=== PATIENT | female | born 1980 | race Hispanic/Latino ===

== ENCOUNTER 2017-09-13 22:03 | Emergency (ER) | payer MEDICAID, OTHER ==
[2017-09-13] MEDS ORDERED: ACETAMINOPHEN-CODEINE ELIXIR 5 ML UDCUP ONE (22:15)
== END 2017-09-13 23:03 | disposition home or self-care (01) ==
LOC: EDH 22:03
DX: S02.2XXA Fracture of nasal bones, initial encounter for closed fracture (principal); Z72.0 Tobacco use; Y04.0XXA Assault by unarmed brawl or fight, initial encounter; Y93.89 Activity, other specified; Y92.89 Other specified places as the place of occurrence of the external cause; Y99.8 Other external cause status
CPT/HCPCS: 70486

== ENCOUNTER 2018-02-25 20:43 | Emergency (ER) | payer OTHER ==
[2018-02-25 21:30] LABS: BASOPHILS % (AUTO) 0.6 % (0.0-5.0); EOSINOPHILS % (AUTO) 1.2 % (0.0-8.0); HEMATOCRIT 46.7 % (36-48); LYMPHOCYTES % (AUTO) 14.2 % (21.0-51.0); MEAN CORPUSCULAR HEMOGLOBIN 30.2 pg (27.0-33.0); MEAN CORPUSCULAR HGB CONC 33.2 g/dL (32.0-36.0); MEAN CORPUSCULAR VOLUME 91.2 fL (79-99); MONOCYTES % (AUTO) 5.1 % (3.0-13.0); NEUTROPHILS % (AUTO) 78.9 % (40.0-77.0); PLATELET COUNT (AUTO) 243 K/uL (130-400); RED BLOOD CELL COUNT(AUTO) 5.12 MIL/uL (4.00-5.50); RED CELL DISTRIBUTION WIDTH 13.6 % (11.0-15.5); WHITE BLOOD COUNT (AUTO) 12.5 K/uL (4.8-10.8)
[2018-02-25 21:32] LABS: APPEARANCE,URINE CLEAR (CLEAR); BILIRUBIN,URINE NEGATIVE (NEGATIVE); COLOR,URINE YELLOW (YELLOW); GLUCOSE, URINE (UA) NEGATIVE (NEGATIVE); KETONES,URINE NEGATIVE (NEGATIVE); LEUKOCYTE ESTERASE ,URINE NEGATIVE (NEGATIVE); NITRATE,URINE POSITIVE (NEGATIVE); OCCULT BLOOD,URINE NEGATIVE (NEGATIVE); PH,URINE 5.5 (5.0-8.0); PROTEIN,URINE TRACE (NEGATIVE); UROBILINOGEN,URINE 0.2 mg/dL (0.2-1.0)
[2018-02-25 21:41] LABS: CREATININE 1.2 mg/dL (0.5-1.5); HCG,QUAL RESULT NEGATIVE (NEGATIVE); POTASSIUM 3.6 mmol/L (3.5-5.1)
[2018-02-25 21:44] LABS: AMYLASE 38 U/L (25-115); LIPASE 101 U/L (114-286)
[2018-02-25] MEDS ORDERED: IOHEXOL-350 75 ML VIAL IV ONE (21:45)
[2018-02-25 21:52] LABS: BACTERIA,URINE Few /HPF (None Seen); RBC,URINE 0-1 /HPF (0-1)
[2018-02-25 21:53] LABS: MUCUS,URINE Moderate LPF (None Seen); SQUAMOUS EPITHELIAL CELL,UR Few /HPF (0-2)
[2018-02-25 21:55] LABS: ALBUMIN 2.6 g/dL (3.5-5.0); BILIRUBIN,TOTAL 0.7 mg/dL (0.2-1.0); TOTAL PROTEIN, SERUM 5.7 g/dL (6.0-8.3)
[2018-02-25] MEDS ORDERED: LIDOCAINE HCL 2% VISCOUS 15 ML UDCUP ONE (22:11)
[2018-02-25] MEDS ORDERED: DICYCLOMINE HCL 20 MG TAB ONE (22:11)
[2018-02-25] MEDS ORDERED: MAG HYDROX/AL HYDROX/SIMETH ES 30 ML SUSP UDCUP ONE (22:11)
[2018-02-25] MEDS ORDERED: SODIUM CHLORIDE 0.9% 50 ML IV ONE (22:57)
== END 2018-02-25 22:57 | disposition home or self-care (01) ==
LOC: EDH 20:43
DX: N39.0 Urinary tract infection, site not specified (principal); R10.84 Generalized abdominal pain; Z90.49 Acquired absence of other specified parts of digestive tract; Z90.710 Acquired absence of both cervix and uterus; Z98.890 Other specified postprocedural states; Z72.0 Tobacco use
CPT/HCPCS: 36415; 74177; 80053; 81001; 81025; 82150; 83690; 85025; 99284; Q9967

== ENCOUNTER 2018-11-22 10:56 | Emergency (ER) | payer OTHER ==
[2018-11-22] MEDS ORDERED: CYCLOBENZAPRINE HCL 10 MG TABLET ONE (11:25)
[2018-11-22] MEDS ORDERED: KETOROLAC TROMETHAMINE 60 MG/2 ML VIAL ONE (11:25)
== END 2018-11-22 12:07 | disposition home or self-care (01) ==
LOC: EDH 10:56
DX: S29.012A Strain of muscle and tendon of back wall of thorax, initial encounter (principal); Z90.710 Acquired absence of both cervix and uterus; X58.XXXA Exposure to other specified factors, initial encounter; Y93.89 Activity, other specified; Y92.89 Other specified places as the place of occurrence of the external cause; Y99.8 Other external cause status
CPT/HCPCS: 71046; 96372; 99284; J1885

== ENCOUNTER 2019-12-26 16:40 | Emergency (ER) | payer MEDICAID ==
[2019-12-26] MEDS ORDERED: ONDANSETRON ODT 4 MG TAB ONE (17:32)
[2019-12-26 17:41] LABS: BASOPHILS % (AUTO) 0.8 % (0.0-5.0); EOSINOPHILS % (AUTO) 3.5 % (0.0-8.0); HEMATOCRIT 46.8 % (36-48); MEAN CORPUSCULAR HEMOGLOBIN 30.2 pg (27.0-33.0); MEAN CORPUSCULAR HGB CONC 32.9 g/dL (32.0-36.0); MEAN CORPUSCULAR VOLUME 91.8 fL (79-99); MONOCYTES % (AUTO) 6.5 % (3.0-13.0); NEUTROPHILS % (AUTO) 62.8 % (40.0-77.0); PLATELET COUNT (AUTO) 232 K/uL (130-400); RED CELL DISTRIBUTION WIDTH 12.8 % (11.0-15.5); WHITE BLOOD COUNT (AUTO) 7.7 K/uL (4.8-10.8)
[2019-12-26 17:47] LABS: APPEARANCE,URINE Clear (CLEAR); BILIRUBIN,URINE Negative (NEGATIVE); COLOR,URINE Yellow (YELLOW); GLUCOSE, URINE (UA) Negative (NEGATIVE); KETONES,URINE Trace mg/dL (NEGATIVE); LEUKOCYTE ESTERASE ,URINE Negative (NEGATIVE); NITRATE,URINE Negative (NEGATIVE); OCCULT BLOOD,URINE Moderate (NEGATIVE); PROTEIN,URINE Negative (NEGATIVE)
[2019-12-26 17:54] LABS: POTASSIUM 3.6 mmol/L (3.5-5.1)
[2019-12-26 17:56] LABS: AMPHET/METH SCREEN,URINE NEGATIVE (NEGATIVE); BARBITURATE SCREEN, URINE NEGATIVE (NEGATIVE); BENZODIAZEPINES SCREEN,URINE NEGATIVE (NEGATIVE); CANNABINOID SCREEN,URINE POSITIVE (NEGATIVE); COCAINE SCREEN,URINE POSITIVE (NEGATIVE); OPIATE SCREEN,URINE NEGATIVE (NEGATIVE); PHENCYCLIDINE SCREEN,URINE NEGATIVE (NEGATIVE)
[2019-12-26 17:59] LABS: BACTERIA,URINE Rare /HPF (None Seen); WBC,URINE 0-1 /HPF (0-1)
[2019-12-26 17:59] LABS: ALBUMIN 3.5 g/dL (3.5-5.0); BILIRUBIN,TOTAL 0.5 mg/dL (0.2-1.0); TOTAL PROTEIN, SERUM 7.7 g/dL (6.0-8.3)
[2019-12-26 18:00] LABS: MUCUS,URINE Few LPF (None Seen); SQUAMOUS EPITHELIAL CELL,UR Few /HPF (0-2)
== END 2019-12-26 18:44 | disposition home or self-care (01) ==
LOC: EDH 16:40
DX: R05 Cough (principal); M79.10 Myalgia, unspecified site; R11.2 Nausea with vomiting, unspecified; R09.89 Other specified symptoms and signs involving the circulatory and respiratory systems; Z20.828 Contact with and (suspected) exposure to other viral communicable diseases; Z90.49 Acquired absence of other specified parts of digestive tract; Z90.710 Acquired absence of both cervix and uterus; Z72.0 Tobacco use
CPT/HCPCS: 36415; 71045; 80053; 80305; 81001; 85025; 87880; 99284; U0003

== ENCOUNTER 2020-04-19 23:09 | Emergency (ER) | payer MEDICAID ==
[2020-04-19] MEDS ORDERED: ONDANSETRON 4MG INJ ONE (23:35)
[2020-04-19] MEDS ORDERED: 0.9%NACL 1000ML 1,000 ML IV ONE (23:38)
[2020-04-19 23:52] LABS: HCG,QUAL RESULT NEGATIVE (NEGATIVE)
[2020-04-19 23:53] LABS: APPEARANCE,URINE Cloudy (CLEAR); BILIRUBIN,URINE Negative (NEGATIVE); COLOR,URINE Yellow (YELLOW); GLUCOSE, URINE (UA) Negative (NEGATIVE); KETONES,URINE Trace mg/dL (NEGATIVE); LEUKOCYTE ESTERASE ,URINE Trace (NEGATIVE); NITRATE,URINE Negative (NEGATIVE); OCCULT BLOOD,URINE Large (NEGATIVE); PH,URINE 5.5 (5.0-8.0); PROTEIN,URINE POS 1+ mg/dL (NEGATIVE)
[2020-04-19 23:57] LABS: BASOPHILS % (AUTO) 0.5 % (0.0-5.0); EOSINOPHILS % (AUTO) 1.2 % (0.0-8.0); HEMATOCRIT 47.4 % (36-48); LYMPHOCYTES % (AUTO) 16.7 % (21.0-51.0); MEAN CORPUSCULAR HEMOGLOBIN 30.9 pg (27.0-33.0); MEAN CORPUSCULAR HGB CONC 33.5 g/dL (32.0-36.0); MEAN CORPUSCULAR VOLUME 92.2 fL (79-99); PLATELET COUNT (AUTO) 248 K/uL (130-400); RED BLOOD CELL COUNT(AUTO) 5.14 MIL/uL (4.00-5.50); WHITE BLOOD COUNT (AUTO) 10.3 K/uL (4.8-10.8)
[2020-04-19] MEDS ORDERED: FAMOTIDINE 20MG VIAL IV ONE (23:59)
[2020-04-20 00:04] LABS: BACTERIA,URINE Few /HPF (None Seen); CALCIUM OXALATE CRYSTALS,UR Many /LPF (None Seen); RBC,URINE 0-1 /HPF (0-1); WBC,URINE 0-1 /HPF (0-1); YEAST,URINE BUDDING Rare /HPF (None Seen)
[2020-04-20 00:06] LABS: POTASSIUM 3.5 mmol/L (3.5-5.1)
[2020-04-20 00:09] LABS: INR 0.95 (0.85-1.15); PROTHROMBIN TIME 10.4 SEC (9.6-11.6)
[2020-04-20 00:11] LABS: BILIRUBIN,TOTAL 0.7 mg/dL (0.2-1.0); PARTIAL THROMBOPLASTIN TIME 29.3 SEC (26.3-35.5); TOTAL PROTEIN, SERUM 8.6 g/dL (6.0-8.3)
[2020-04-20] MEDS ORDERED: IOHEXOL 350 MG/ML 100ML INFUS..BTL IV ONE (00:15)
[2020-04-20] MEDS ORDERED: PANTOPRAZOLE 40 MG TAB DR ONE (00:16)
[2020-04-20 02:24] LABS: HEMATOCRIT 40.9 % (36-48)
[2020-04-20] MEDS ORDERED: ACETAMINOPHEN 500 MG TABLET ONE (02:44)
== END 2020-04-20 03:49 | disposition home or self-care (01) ==
LOC: EDH 23:09
DX: R10.13 Epigastric pain (principal); F14.10 Cocaine abuse, uncomplicated; R03.0 Elevated blood-pressure reading, without diagnosis of hypertension; Z20.822 Contact with and (suspected) exposure to COVID-19; F41.9 Anxiety disorder, unspecified; F32.9 Major depressive disorder, single episode, unspecified; F20.9 Schizophrenia, unspecified; Z90.49 Acquired absence of other specified parts of digestive tract; Z90.710 Acquired absence of both cervix and uterus; Z72.0 Tobacco use
CPT/HCPCS: 36415 ×2; 71045; 74177; 80053; 81001; 81025; 82550; 83690; 84484; 85014; 85018; 85025; 85610; 85730; 86900; 86901; 87426; 93005; 96361; 96374; 99285; J2405; J3490; J7030; Q9967; U0003

== ENCOUNTER 2020-05-16 00:21 | Emergency (ER) | payer MEDICAID ==
[2020-05-16] MEDS ORDERED: ACETAMINOPHEN EXTRA STRENGTH 500 MG TABLET ONE (01:35)
[2020-05-16 01:47] LABS: RAPID GROUP A STREP NEGATIVE (NEGATIVE)
== END 2020-05-16 02:44 | disposition home or self-care (01) ==
LOC: EDH 00:21
DX: J01.80 Other acute sinusitis (principal); Z20.822 Contact with and (suspected) exposure to COVID-19; F41.9 Anxiety disorder, unspecified; F31.9 Bipolar disorder, unspecified; F20.9 Schizophrenia, unspecified; Z90.710 Acquired absence of both cervix and uterus; Z72.0 Tobacco use
CPT/HCPCS: 87426; 87804 ×2; 87880; 99283; U0003

== ENCOUNTER 2020-06-12 04:39 | Emergency (ER) | payer MEDICAID ==
[2020-06-12] MEDS ORDERED: LIDOCAINE HCL 2% JELLY 5 ML ONE (04:44)
[2020-06-12] MEDS ORDERED: LIDOCAINE 1%-EPI 1:100,000 20 ML VIAL IJ ONE (05:01)
[2020-06-12] MEDS ORDERED: HYDROCODONE/ACETAMINOPHEN 5/325 MG TAB ONE (05:05)
== END 2020-06-12 06:39 | disposition home or self-care (01) ==
LOC: EDH 04:39
DX: S01.01XA Laceration without foreign body of scalp, initial encounter (principal); F41.9 Anxiety disorder, unspecified; F32.9 Major depressive disorder, single episode, unspecified; F20.9 Schizophrenia, unspecified; Z90.49 Acquired absence of other specified parts of digestive tract; Z90.710 Acquired absence of both cervix and uterus; Z72.0 Tobacco use; W18.39XA Other fall on same level, initial encounter; Y93.01 Activity, walking, marching and hiking; Y92.89 Other specified places as the place of occurrence of the external cause; Y99.8 Other external cause status
CPT/HCPCS: 12032; 70450; 99284; J3490

== ENCOUNTER 2020-06-13 23:23 | Emergency (ER) | payer MEDICAID ==
[2020-06-14 00:03] LABS: BASOPHILS % (AUTO) 0.7 % (0.0-5.0); EOSINOPHILS % (AUTO) 6.3 % (0.0-8.0); HEMATOCRIT 43.3 % (36-48); LYMPHOCYTES % (AUTO) 35.3 % (21.0-51.0); MEAN CORPUSCULAR HEMOGLOBIN 29.9 pg (27.0-33.0); MEAN CORPUSCULAR HGB CONC 32.3 g/dL (32.0-36.0); MEAN CORPUSCULAR VOLUME 92.5 fL (79-99); MONOCYTES % (AUTO) 9.3 % (3.0-13.0); NEUTROPHILS % (AUTO) 47.9 % (40.0-77.0); PLATELET COUNT (AUTO) 247 K/uL (130-400); RED BLOOD CELL COUNT(AUTO) 4.68 MIL/uL (4.00-5.50); RED CELL DISTRIBUTION WIDTH 12.9 % (11.0-15.5)
[2020-06-14 00:06] LABS: APPEARANCE,URINE Clear (CLEAR); BILIRUBIN,URINE Negative (NEGATIVE); COLOR,URINE Yellow (YELLOW); GLUCOSE, URINE (UA) Negative (NEGATIVE); KETONES,URINE Trace mg/dL (NEGATIVE); LEUKOCYTE ESTERASE ,URINE Negative (NEGATIVE); NITRATE,URINE Negative (NEGATIVE); OCCULT BLOOD,URINE Small (NEGATIVE); PROTEIN,URINE Negative (NEGATIVE)
[2020-06-14 00:13] LABS: CREATININE 0.9 mg/dL (0.5-1.5); POTASSIUM 3.8 mmol/L (3.5-5.1)
[2020-06-14 00:18] LABS: ALBUMIN 3.5 g/dL (3.5-5.0); BILIRUBIN,TOTAL 0.4 mg/dL (0.2-1.0); CRP QUANTITATIVE 12.7 mg/L (0.00-9.0); TOTAL PROTEIN, SERUM 7.4 g/dL (6.0-8.3)
[2020-06-14 00:28] LABS: RBC,URINE 0-1 /HPF (0-1)
[2020-06-14 00:29] LABS: BACTERIA,URINE None Seen /HPF (None Seen); CALCIUM OXALATE CRYSTALS,UR Many /LPF (None Seen); MUCUS,URINE Few LPF (None Seen); SQUAMOUS EPITHELIAL CELL,UR Few /HPF (0-2); WBC,URINE None Seen /HPF (0-1)
[2020-06-14] MEDS ORDERED: SULFAMETHOX-TMP DS 800/160 TAB ONE (00:32)
[2020-06-14 00:33] LABS: HCG,QUAL RESULT NEGATIVE (NEGATIVE)
[2020-06-14] MEDS ORDERED: HYDROCODONE/ACETAMINOPHEN 5/325 MG TAB ONE (00:33)
[2020-06-14] MEDS ORDERED: ONDANSETRON HCL 4 MG/2 ML VIAL ONE (00:48)
[2020-06-14] MEDS ORDERED: KETOROLAC TROMETHAMINE 30MG/ML ONE (00:49)
[2020-06-14] MEDS ORDERED: ORPHENADRINE CITRATE 30 MG/ML ML ONE (00:49)
== END 2020-06-14 01:59 | disposition home or self-care (01) ==
LOC: EDH 23:23
DX: R51.9 Headache, unspecified (principal); M62.838 Other muscle spasm; I88.9 Nonspecific lymphadenitis, unspecified; F31.9 Bipolar disorder, unspecified; F20.9 Schizophrenia, unspecified; F43.10 Post-traumatic stress disorder, unspecified; Z72.0 Tobacco use; Z90.710 Acquired absence of both cervix and uterus
CPT/HCPCS: 36415; 80053; 81001; 81025; 85025; 86140; 96361; 96374; 96375; 99284; J1885; J2360; J2405

== ENCOUNTER 2020-06-21 14:01 | Emergency (ER) | payer MEDICAID | END 2020-06-21 14:32 | disposition home or self-care (01) | LOC: EDH 14:01 | DX: S01.01XD Laceration without foreign body of scalp, subsequent encounter (principal); F41.9 Anxiety disorder, unspecified; F32.9 Major depressive disorder, single episode, unspecified; F20.9 Schizophrenia, unspecified; Z90.49 Acquired absence of other specified parts of digestive tract; Z90.710 Acquired absence of both cervix and uterus; Z72.0 Tobacco use; X58.XXXD Exposure to other specified factors, subsequent encounter | CPT/HCPCS: 99281 ==

== ENCOUNTER 2020-07-08 12:23 | Emergency (ER) | payer MEDICAID ==
[2020-07-08] MEDS ORDERED: CYCLOBENZAPRINE HCL 10 MG TABLET ONE (12:43)
[2020-07-08] MEDS ORDERED: ACETAMINOPHEN-CODEINE 300/30MG TAB ONE (12:43)
[2020-07-08] MEDS ORDERED: METHYLPREDNISOLONE SOD SUCC 125MG/2ML VIAL ONE (12:43)
== END 2020-07-08 14:49 | disposition home or self-care (01) ==
LOC: EDH 12:23
DX: M54.5 Low back pain (principal); F20.9 Schizophrenia, unspecified; F41.9 Anxiety disorder, unspecified; F32.9 Major depressive disorder, single episode, unspecified; Z90.49 Acquired absence of other specified parts of digestive tract; Z90.710 Acquired absence of both cervix and uterus; Z72.0 Tobacco use
CPT/HCPCS: 72100; 96372; 99283; J2930

== ENCOUNTER 2022-02-28 18:30 | Emergency (ER) | payer MEDICAID ==
[~2022-02-28] VITALS: Ht 167.6 cm; Wt 90.7 kg
[2022-02-28 19:38] VITALS: BP 124/68
[2022-02-28] MEDS ORDERED: IBUP-2070 PO (20:21)
[2022-02-28] MEDS ORDERED: KETOROLAC 30MG VIAL (30MG/ML) IM ONE (20:30)
== END 2022-02-28 20:40 | disposition home or self-care (01) ==
LOC: EDH 18:30
DX: M25.561 Pain in right knee (principal); F41.9 Anxiety disorder, unspecified; F31.9 Bipolar disorder, unspecified; F20.9 Schizophrenia, unspecified; Z90.710 Acquired absence of both cervix and uterus; Z90.49 Acquired absence of other specified parts of digestive tract; Z98.890 Other specified postprocedural states
CPT/HCPCS: 99283; 96372; J1885

== ENCOUNTER 2023-04-01 14:09 | Emergency (ER) | payer MEDICAID ==
[~2023-04-01] VITALS: Ht 167.6 cm; Wt 84.8 kg
[~2023-04-01 14:09] MED LIST: IBUP-2070 PO
[2023-04-01 14:21] VITALS: BP 119/64; PULSE 84; RESP 18
[2023-04-01] MEDS ORDERED: HYDROCODONE/ACETAMINOPHEN 5/325 MG TAB PO ONE (15:00)
[2023-04-01] MEDS ORDERED: IBUP-2077 PO (15:00)
[2023-04-01] MEDS ORDERED: DEXAMETHASONE SOD PHOSPHATE 4 MG/ML 1ML VIAL IM ONE (15:00)
[2023-04-01] MEDS ORDERED: CYCL-309 PO (15:00)
[2023-04-01] MEDS ORDERED: METH4TAB3 PO (15:00)
[2023-04-01] MEDS ORDERED: CYCLOBENZAPRINE HCL 10 MG TABLET PO ONE (15:00)
== END 2023-04-01 15:46 | disposition home or self-care (01) ==
LOC: EDH 14:09
DX: M54.40 Lumbago with sciatica, unspecified side (principal); F41.9 Anxiety disorder, unspecified; F32.A Depression, unspecified; Z90.49 Acquired absence of other specified parts of digestive tract; Z90.710 Acquired absence of both cervix and uterus; Z98.890 Other specified postprocedural states
CPT/HCPCS: 99283; 96372; J1100

== ENCOUNTER 2024-02-17 00:36 | Emergency (ER) | payer SELFPAY ==
[~2024-02-17] VITALS: Ht 167.6 cm; Wt 89.6 kg
[~2024-02-17 00:36] MED LIST changes: +CYCL-309 PO; +IBUP-2077 PO; +METH4TAB3 PO
[2024-02-17 00:38] VITALS: BP 125/81; TEMP 98.7
--- NOTE | 2024-02-17 00:41 | NUR ---
COVID AND FLU SWABS COLLECTED AND SENT
[2024-02-17 01:04] LABS: SARS-CoV-2, RNA, NAAT NEGATIVE SARS CoV-2 (NEGATIVE)
[2024-02-17 01:08] LABS: INFLUENZA TYPE A Negative For Type A (NEGATIVE); INFLUENZA TYPE B Negative For Type B (NEGATIVE)
--- NOTE | 2024-02-17 01:58 | ERN ---
General Chief Complaint: Cough Stated Complaint: COUGH, CONGESTION Time Seen by MD: 01:20 History of Present Illness Initial Comments 44-year-old female with no significant medical history except tobacco abuse comes in with a chief complaint of shortness of breath and cough. Patient reports she smokes about a pack a day. She also smokes marijuana. Patient reports that over the last several days she has been taking care of her granddaughter who has been sick. Allergies: Coded Allergies: No Known Allergies (Unverified Allergy, Unknown, 11/22/18) Home Meds Active Scripts Methylprednisolone (Medrol) 4 Mg Tab.ds.pk, 4 MG PO AD, #1 UNIT Prov:TAM RODRÍGUEZ CLASSROOM MONITOR 04/01/23 Ibuprofen (Ibuprofen 800 mg Tab) 800 Mg Tab, 800 MG PO Q8H PRN for fever or pain, #30 TAB 0 Refills Prov:TAM RODRÍGUEZ CLASSROOM MONITOR 04/01/23 Cyclobenzaprine HCl (Cyclobenzaprine HCl) 10 Mg Tablet, 10 MG PO TID for 5 Days, #30 TAB Prov:TAM RODRÍGUEZ CLASSROOM MONITOR 04/01/23 Ibuprofen (Ibuprofen) 600 Mg Tablet, 600 MG PO Q6H PRN for PAIN, #20 TAB Prov:KARLY ROSALES V SHIFT SUPERINTENDENT CAUSTIC CRESYLATE 02/28/22 Past Medical History Past Medical History: Anxiety, Bipolar, Depression, Schizophrenia Medical History Other: PTSD Past Surgical History: Hysterectomy, Cholecystectomy, Female( History) History: Not Applicable ROS Dictation Constitutional: Negative for fever,chills, and weight loss Eyes: Negative for injury, pain,redness, and discharge ENT: Negative for injury,pain or swelling Cardiovascular: Negative for chest pain, palpitations, and edema Respiratory: Positive for cough Abdomen/GI: Negative for abdominal pain, nausea, vomiting, diarrhea, and constipation Back: Negative for injury and pain : Negative for injury, bleeding and discharge MS/Extremity: Negative for injury and deformity Skin: Negative for rash, and discoloration Neuro: Negative for headache, weakness, numbness, tingling, and seizure Psych: Negative for suicide ideation, homicidal ideation, and hallucinations Physical Exam Physical Exam Dictation General: awake, alert, NAD Head/Face: Normocephalic, atraumatic Eyes: PERRL, EOMI, vision at baseline ENT: oral cavity clear Neck: Trachea midline, supple Cardiovascular: RRR, normal S1/S2, No MRGs, no JVD Respiratory: Decreased breath sounds bilaterally Abdomen: Soft, non-tender, non-distended, normal bowel sounds, no guarding or rebound. Skin: Warm, dry, normal turgor, no rash MS/Extremity: Pulses equal, no cyanosis Neuro: COAx4, GCS 15, strength 5/5, Results Laboratory and Microbiology Lab and Micro Result Laboratory Tests Test 02/17/24 00:42 Influenza Type A Antigen Negative For Type A Influenza Type B Antigen Negative For Type B SARS-CoV-2, RNA, NAAT NEGATIVE SARS CoV-2 MDM Patient's cough has not improved. Advised patient to stop smoking. MDM: Differential diagnosis: Bronchitis Rationale: Tests considered and ordered secondary to shared decision making include: Previous outside records reviewed: Old ER visits. Risk of complication and/or morbidity or mortality of patient management: None Medications-Per medication reconciliation Need for hospitalization: Patient does not meet criteria for hospitalization. Need for emergency major/minor surgery: No There are no social concerns with this patient. Prescription drug management Prescriptions will include symptomatic care Patient's prior external medical records from other ER visits were reviewed by me as indicated. Prior testing and results from previous visits were reviewed. Prior tests were taken into account with medical decision making and resource utilization, independent historian/historians were used to obtain complete medical history. I independently interpreted the test that were performed, results were reviewed by me and considered findings on radiology if ordered. Medical management and examination interpretation discussions were had by me with other qualified healthcare professionals as indicated for the patient's care. ED Course Orders Procedure Category Date Status Time Covid Rna Naat LAB 02/17/24 Complete 00:40 Influenza Type A & B, LAB 02/17/24 Complete Rapid 00:40 Chest 1vw RAD 02/17/24 Taken 00:40 Budesonide 0.5 Mg/2 PHA 02/17/24 In Process Ml Inh (Pulmicort 0. 06:00 Ipratropium/Albuterol PHA 02/17/24 Complete Neb (Duoneb) 02:00 Methylprednisolone PHA 02/17/24 Complete Succ 125mg (Solu-Medr 02:00 Current Medications Medications (Trade) Dose Ordered Sig/Aurelia Route PRN Reason Start Time Stop Time Status Last Admin Dose Admin Albuterol (DUOneb) 1 UDVIAL ONCE ONCE IH 02/17/24 02:00 02/17/24 02:01 DC 02/17/24 02:02 Budesonide (Pulmicort 0.5 Mg/2ml) 0.5 mg BIDRESP IH 02/17/24 06:00 03/18/24 05:59 Methylprednisolone Sodium Succinate (Solu-medROL 125MG) 125 mg ONCE ONCE IM 02/17/24 02:00 02/17/24 02:01 DC 02/17/24 02:06 Vital Signs Date Time Temp Pulse Resp B/P (MAP) Pulse Ox O2 Delivery O2 Flow Rate FiO2 02/17/24 00:38 98.8 82 16 125/81 99 Room Air DX & DISP Disposition: Discharge Departure Impression: Primary Impression: Bronchitis Condition: Stable Scripts Albuterol Sulfate (Ventolin Hfa/Proventil Hfa/Proair Hfa) 90 Mcg Puff 2 PUFF IH Q4HPRN PRN for wheezing for 30 Days, #18 GM 0 Refills Prov: BROCK VALVERDE MD 02/17/24 Prednisone (Prednisone) 10 Mg Tab.ds.pk 40 MG PO DAILY for 5 Days, #5 TAB Prov: BROCK VALVERDE MD 02/17/24 Referrals: NONE (PCP) BROCK VALVERDE MD Feb 17, 2024 01:57
[2024-02-17] MEDS: IpraTROPium/alBUTERol SULFATE 3 ML SOLUTION IH ONE (02:02)
[2024-02-17] MEDS: Solu-medROL 125MG VIAL IM ONE (02:06)
[2024-02-17] MEDS ORDERED: PRED10TA23 PO (03:16)
[2024-02-17] MEDS ORDERED: ALBUHFA IH (03:16)
[2024-02-17] MEDS ORDERED: BUDESONIDE 0.5 MG/2 ML INH IH SCH (06:00)
--- NOTE | 2024-02-17 08:34 | HMCIMG ---
CHEST 1VW REASON: COUGH, COMPARISON: 04/20/2020 FINDINGS: Single view of the chest was obtained. Lungs are clear. Heart size is normal. There is no pulmonary vascular congestion. Mediastinum and bony thorax appear unremarkable. IMPRESSION: 1. Normal single view chest x-ray.
[2024-02-18 02:02] VITALS: PULSE 78; RESP 18
== END 2024-02-17 03:21 | disposition home or self-care (01) ==
LOC: EDH 00:36
DX: J40 Bronchitis, not specified as acute or chronic (principal); F20.9 Schizophrenia, unspecified; F31.9 Bipolar disorder, unspecified; F17.210 Nicotine dependence, cigarettes, uncomplicated; Z79.51 Long term (current) use of inhaled steroids; Z90.49 Acquired absence of other specified parts of digestive tract; Z90.710 Acquired absence of both cervix and uterus; Z20.822 Contact with and (suspected) exposure to COVID-19
CPT/HCPCS: 99284; 71045; 87635; 87804 ×2; 96372; J2919

== ENCOUNTER 2024-12-25 13:07 | Emergency (ER) | payer MEDICAID ==
[~2024-12-25] VITALS: Ht 167.6 cm; Wt 94.6 kg
[~2024-12-25 13:07] MED LIST changes: +ALBUHFA IH; +IBUP-1492 PO; -IBUP-2070 PO; +PRED10TA23 PO
[2024-12-25 13:48] LABS: IMMATURE GRANULOCYTE ABSOLUTE 0.04 K/uL (0-1); NUCLEATED RED BLOOD CELLS 0.0 % (0.0-0.19); PLATELET COUNT (AUTO) 259 K/uL (130-400); RED BLOOD CELL COUNT(AUTO) 4.89 MIL/uL (4.00-5.50); RED CELL DISTRIBUTION WIDTH 16.4 % (11.0-15.5); WHITE BLOOD COUNT (AUTO) 6.4 K/uL (4.8-10.8)
[2024-12-25 13:55] LABS: APPEARANCE,URINE CLEAR (CLEAR); GLUCOSE, URINE (UA) >=1000 mg/dL (NEGATIVE); LEUKOCYTE ESTERASE ,URINE NEGATIVE Leu/uL (NEGATIVE); NITRATE,URINE NEGATIVE (NEGATIVE); OCCULT BLOOD,URINE +- (TRACE) (NEGATIVE)
[2024-12-25 13:58] LABS: CREATININE 1.1 mg/dL (0.5-1.0); GLOMERULAR FILTR. RATE CALC 63.0 mL/min (>90); SODIUM SERUM 139.0 mmol/L (136-145); UREA NITROGEN, BLOOD 14.0 mg/dL (7-18)
[2024-12-25 13:58] LABS: ADD UA MICROSCOPIC YES
[2024-12-25 14:00] LABS: GLUCOSE,RANDOM 446.0 mg/dL (70-105)
[2024-12-25 14:08] LABS: SQUAMOUS EPITHELIAL CELL,UR RARE /HPF (0-2)
[2024-12-25] MEDS: 0.9%NACL 1000ML 1,000 ML IV STA ×2 (14:47→16:14)
[2024-12-25] MEDS ORDERED: METF-444 PO (15:10)
--- NOTE | 2024-12-25 15:10 | ERN ---
ED Note History of Present Illness Stated Complaint: URINARY FREQUENCY Chief Complaint: Urinary Frequency Time Seen by MD: 13:11 Time Seen by Midlevel: 13:16 Dictation: 44-year-old female no stated medical history coming in with complaints of urinary frequency and vaginal itching for the last few days. Patient denies any fevers, nausea or vomiting or back pain. States she has a partial hysterectomy. Does not menstruate anymore. Allergies: Coded Allergies: No Known Allergies (Unverified Allergy, Unknown, 11/22/18) Home Meds Active Scripts Fluconazole (Fluconazole) 150 Mg Tablet, 1 TAB PO ONCE for 1 Day, #1 TAB 0 Refills Prov:JOEL GARZA MEMBER SERVICE REPRESENTATIVE 12/25/24 Metformin HCl (Metformin HCl) 500 Mg Tablet, 1 TAB PO BID for 30 Days, #60 TAB 0 Refills Prov:JOEL GARZA MEMBER SERVICE REPRESENTATIVE 12/25/24 Albuterol Sulfate (Ventolin Hfa/Proventil Hfa/Proair Hfa) 90 Mcg Puff, 2 PUFF IH Q4HPRN PRN for wheezing for 30 Days, #18 GM 0 Refills Prov:BROCK VALVERDE MD 02/17/24 Prednisone (Prednisone) 10 Mg Tab.ds.pk, 40 MG PO DAILY for 5 Days, #5 TAB Prov:BROCK VALVERDE MD 02/17/24 Methylprednisolone (Medrol) 4 Mg Tab.ds.pk, 4 MG PO AD, #1 UNIT Prov:TAM RODRÍGUEZ MEMBER SERVICE REPRESENTATIVE 04/01/23 Ibuprofen (Ibuprofen 800 mg Tab) 800 Mg Tab, 800 MG PO Q8H PRN for fever or pain, #30 TAB 0 Refills Prov:TAM RODRÍGUEZ MEMBER SERVICE REPRESENTATIVE 04/01/23 Cyclobenzaprine HCl (Cyclobenzaprine HCl) 10 Mg Tablet, 10 MG PO TID for 5 Days, #30 TAB Prov:TAM RODRÍGUEZ MEMBER SERVICE REPRESENTATIVE 04/01/23 Ibuprofen (Ibuprofen) 600 Mg Tablet, 600 MG PO Q6H PRN for PAIN, #20 TAB Prov:KARLY ROSALES V MEMBER SERVICE REPRESENTATIVE 02/28/22 Past Medical History Past Medical History: No Pertinent History Additional Past Medical Hx: PTSD Surgical History: Hysterectomy, Cholecystectomy History: Not Applicable Review of System Dictation Constitutional: Negative for fever,chills, and weight loss Eyes: Negative for injury, pain,redness, and discharge ENT: Negative for injury,pain or swelling Cardiovascular: Negative for chest pain, palpitations, and edema Respiratory: Negative for shortness of breath, cough, and wheezing, Abdomen/GI: Negative for abdominal pain, nausea, vomiting, diarrhea, and constipation Back: Negative for injury and pain : Negative for injury, bleeding and discharge, urinary frequency MS/Extremity: Negative for injury and deformity Skin: Negative for rash, and discoloration Neuro: Negative for headache, weakness, numbness, tingling, and seizure Psych: Negative for suicide ideation, homicidal ideation, and hallucinations Review of Systems: was completed Initial Vital Sign VS Vital Signs Date Time Temp Pulse Resp B/P (MAP) Pulse Ox O2 Delivery O2 Flow Rate FiO2 12/25/24 13:11 97.9 74 16 127/86 98 Room Air 0 12/25/24 13:16 21 Physical Exam Dictation General: awake, alert, NAD Head/Face: Normocephalic, atraumatic Eyes: PERRL, EOMI, vision at baseline ENT: oral cavity clear, TMs clear, no signs of infection Neck: Trachea midline, supple, no nuchal rigidity Cardiovascular: RRR, normal S1/S2, No MRGs, no JVD Respiratory: CTAB, no respiratory distress, No rales or wheezes Abdomen: Soft, non-tender, non-distended, normal bowel sounds, no guarding or rebound. Skin: Warm, dry, normal turgor, no rash MS/Extremity: Pulses equal, no cyanosis, neurovascular intact, FROM Neuro: COAx4, GCS 15, strength 5/5, CN 2-12 intact, normal cerebellar exam, normal gait, Psych: Normal behavior, mood, and affect normal Does not not exam done, Silvestre GAMBINO as sheet layer. There was white discharge at the vaginal canal, no foul odor. Most likely consistent with yeast infection. Results (Laboratory/Radiology) Laboratory/Radiology Laboratory Tests Test 12/25/24 13:20 12/25/24 13:33 12/25/24 15:33 12/25/24 16:35 Urine Color LIGHT-YELLOW (YELLOW) Urine Appearance CLEAR (CLEAR) Urine pH 5.5 (5.0-8.0) Urine Specific [place] 1.034 (1.001-1.031) Urine Protein NEGATIVE mg/dL (NEGATIVE) Urine Glucose (UA) >=1000 mg/dL (NEGATIVE) H Urine Ketones NEGATIVE mg/dL (NEGATIVE) Urine Occult Blood +- (TRACE) (NEGATIVE) H Urine Nitrate NEGATIVE (NEGATIVE) Urine Bilirubin NEGATIVE mg/dL (NEGATIVE) Urine Urobilinogen 0.2 mg/dL (0.2-1.0) Urine Leukocyte Esterase NEGATIVE [place]/uL Urine RBC 2-5 /HPF (0-1) H Urine WBC 2-5 /HPF (0-1) H Urine Squamous Epithelial Cells RARE /HPF (0-2) Urine Bacteria None /HPF (None Seen) White Blood Count 6.4 K/uL (4.8-10.8) Red Blood Count 4.89 MIL/uL (4.00-5.50) Hemoglobin 12.9 g/dL (12.0-16.0) Hematocrit 41.0 % (36-48) Mean Corpuscular Volume 83.8 fL (79-99) Mean Corpuscular Hemoglobin 26.4 pg (27.0-33.0) L Mean Corpuscular Hemoglobin Concent 31.5 g/dL (32.0-36.0) L Red Cell Distribution Width 16.4 % (11.0-15.5) H Platelet Count 259 K/uL (130-400) Mean Platelet Volume 10.2 fL (7.5-10.5) Immature Granulocyte % (Auto) 0.6 % (0-1) Neutrophils (%) (Auto) 62.5 % (40.0-77.0) Lymphocytes (%) (Auto) 28.3 % (21.0-51.0) Monocytes (%) (Auto) 6.4 % (3.0-13.0) Eosinophils (%) (Auto) 1.4 % (0.0-8.0) Basophils (%) (Auto) 0.8 % (0.0-5.0) Neutrophils # (Auto) 4.0 K/uL (1.8-7.7) Lymphocytes # (Auto) 1.8 K/uL (1.0-4.8) Monocytes # (Auto) 0.4 K/uL (0.1-1.0) Eosinophils # (Auto) 0.09 K/uL (0.00-0.70) Basophils # (Auto) 0.05 K/uL (0.00-0.20) Absolute Immature Granulocyte (auto 0.04 K/uL (0-1) Nucleated Red Blood Cells 0.0 % (0.0-0.19) Sodium Level 139 mmol/L (136-145) Potassium Level 4.0 mmol/L (3.5-5.1) Chloride Level 100 mmol/L (101-111) L Carbon Dioxide Level 26 mmol/L (21-32) Blood Urea Nitrogen 14 mg/dL (7-18) Creatinine 1.1 mg/dL (0.5-1.0) H Glomerular Filtration Rate Calc 63 mL/min (>90) Random Glucose 446 mg/dL (70-105) *H Total Calcium 8.8 mg/dL (8.5-10.1) Whole Blood Glucose 399 MG/DL (70-110) H 214 MG/DL (70-110) H Labs Reviewed?: Yes ED Course ED Course Orders Procedure Category Date Status Time Cbc With Differential LAB 12/25/24 Complete 13:15 Basic Metabolic Panel LAB 12/25/24 Complete 13:15 Urinalysis Profile LAB 12/25/24 Complete 13:15 0.9%Nacl 1000ml (Ns PHA 12/25/24 Logged 1000ml) 14:14 Insulin Regular, PHA 12/25/24 Complete Human 3ml (Humulin R 14:14 0.9%Nacl 1000ml (Ns PHA 12/25/24 Complete 1000ml) 15:35 Current Medications Medications (Trade) Dose Ordered Sig/Aurelia Route PRN Reason Start Time Stop Time Status Last Admin Dose Admin Insulin Human Regular (humuLIN R 100 UNIT/ML 3ML) 9 unit ONCE STAT SQ 12/25/24 14:14 12/25/24 14:17 DC 12/25/24 14:56 Sodium Chloride 1,000 ml @ 100 mls/hr Q10H STAT IV 12/25/24 14:14 12/26/24 00:13 12/25/24 14:47 Sodium Chloride 1,000 ml @ 1,000 mls/hr Q1H STAT IV 12/25/24 15:35 12/25/24 16:34 DC 12/25/24 16:14 Vital Signs Date Time Temp Pulse Resp B/P (MAP) Pulse Ox O2 Delivery O2 Flow Rate FiO2 12/25/24 15:13 98.2 76 16 142/77 98 Room Air* 0 21 12/25/24 13:16 97.9 74 16 127/86 98 Room Air* 0 21 12/25/24 13:11 97.9 74 16 127/86 98 Room Air 0 Medical Decision Making MDM MDM: 44-year-old female no stated medical history coming in with complaints of urinary frequency and vaginal itching for the last few days. Patient denies any fevers, nausea or vomiting or back pain. States she has a partial hysterectomy. Does not menstruate anymore. CBC shows no leukocytosis, no anemia, no thrombocytopenia. Patient has normal electrolytes. Creatinine is 1.1, this could be related to dehydration. Blood sugar is 446. Patient is not aware of her elevated blood sugar states she did not know she was diabetic. UA shows no evidence of urinary tract infection and no ketones. Based on findings on my vaginal exam and labs more than likely patient's symptoms of urinary frequency and vaginal itching is related to a yeast infection that has caused by an elevated blood sugar. Patient will receive fluids and insulin here in the emergency room. Latest blood sugar after2 L of NS and 9 units of insulin IV is 214. I will discharge patient with a metformin 500 b.i.d. and follow up with her PCP and with antifungal for the yeast. Educated patient the importance of following up outpatient with PCP. Patient verbalized understanding, answered all questions. Differential diagnosis: Urinary tract infection, yeast infection, pyelonephritis Rationale: Tests considered and ordered secondary to shared decision making include: Previous outside records reviewed: Old ER visits. Risk of complication and/or morbidity or mortality of patient management: None Medications-Per medication reconciliation Need for hospitalization: Patient does not meet criteria for hospitalization. Need for emergency major/minor surgery: No There are no social concerns with this patient. Prescription drug management Prescriptions will include symptomatic care Patient's prior external medical records from other ER visits were reviewed by me as indicated. Prior testing and results from previous visits were reviewed. Prior tests were taken into account with medical decision making and resource utilization, independent historian/historians were used to obtain complete medical history. I independently interpreted the test that were performed, results were reviewed by me and considered findings on radiology if ordered. Medical management and examination interpretation discussions were had by me with other qualified healthcare professionals as indicated for the patient's care. DX & DISP Disposition: Discharge Departure Impression: Primary Impression: Vaginal yeast infection Additional Impression: Uncontrolled diabetes mellitus with hyperglycemia Condition: Stable Scripts Fluconazole (Fluconazole) 150 Mg Tablet 1 TAB PO ONCE for 1 Day, #1 TAB 0 Refills Prov: JOEL GARZA 12/25/24 Metformin HCl (Metformin HCl) 500 Mg Tablet 1 TAB PO BID for 30 Days, #60 TAB 0 Refills Prov: JOEL GARZA 12/25/24 Additional Instructions: Follow up with your primary doctor to further evaluate urine new onset diabetes. Return to the hospital if you develop any fevers, nausea or vomiting or diarrhea. Referrals: SELF,REFERRAL (PCP) Time of Disposition: 16:50 I have reviewed the case, and I agree with, Diagnosis and Plan JOEL GARZA Dec 25, 2024 15:10
[2024-12-25] MEDS ORDERED: FLUC150T48 PO (15:11)
[2024-12-25 16:52] VITALS: BP 136/75; PULSE 76; RESP 16; TEMP 98.3; O2SAT 98
== END 2024-12-25 17:03 | disposition home or self-care (01) ==
LOC: EDH 13:07
DX: L29.2 Pruritus vulvae (principal); B37.31 Acute candidiasis of vulva and vagina; E11.65 Type 2 diabetes mellitus with hyperglycemia; Z90.49 Acquired absence of other specified parts of digestive tract; Z90.710 Acquired absence of both cervix and uterus; Z79.52 Long term (current) use of systemic steroids; Z79.84 Long term (current) use of oral hypoglycemic drugs; Z79.899 Other long term (current) drug therapy
CPT/HCPCS: 99283; 96360; 96361; 80048; 85025; 82948 ×2; 81001; 36415; 96372; J1815; J7030 ×2

== ENCOUNTER 2025-02-20 18:37 | Emergency (ER) | payer MEDICAID ==
[~2025-02-20] VITALS: Ht 167.6 cm; Wt 95.3 kg
[2025-02-20 18:37] VITALS: BP 145/83; PULSE 80; RESP 18; TEMP 98.4
--- NOTE | 2025-02-20 18:46 | ERN ---
ED Note History of Present Illness Stated Complaint: COUGH Chief Complaint: Cough Time Seen by : 18:41 Time Seen by Midlevel: 19:00 Dictation: Ms. Ratliff is a 45-year-old female with history of obesity, nicotine dependence, and elevated blood glucose readings who presented to the emergency department this evening for evaluation of cough. She states Sunday she developed fever, nasal congestion, shortness of breath, and dry cough. She states that she is concerned because symptoms persist and cough is painful. She is also worried because she was told in the past and she had elevated blood glucose readings and she never got it checked out. He is a smoker greater than one pack per day. She denies having fever, chills, palpitations, edema, abdominal pain, nausea, vomiting, diarrhea, dysuria, sore throat, earache, headache, or dizziness. Allergies: Coded Allergies: No Known Allergies (Unverified Allergy, Unknown, 11/22/18) Home Meds Active Scripts Guaifenesin/Dextromethorphan (Guaifenesin-Dm 200-20 mg/10 ml) 100 Mg-10 Mg/5 Ml Liquid, 10 ML PO q8 hours prn for cough, #1 BOT 0 Refills Prov:REY SANTANA [facility] 02/20/25 Azithromycin (Azithromycin) 250 Mg Tablet, 250 MG PO DAILY for 4 Days, #4 TAB 0 Refills Prov:VALTatianaREY Douglas [facility] 02/20/25 Fluconazole (Fluconazole) 150 Mg Tablet, 1 TAB PO ONCE for 1 Day, #1 TAB 0 Refills Prov:JOEL GARZA BUILDING COORDINATOR 12/25/24 Metformin HCl (Metformin HCl) 500 Mg Tablet, 1 TAB PO BID for 30 Days, #60 TAB 0 Refills Prov:JOEL GARZA BUILDING COORDINATOR 12/25/24 Albuterol Sulfate (Ventolin Hfa/Proventil Hfa/Proair Hfa) 90 Mcg Puff, 2 PUFF IH Q4HPRN PRN for wheezing for 30 Days, #18 GM 0 Refills Prov:BROCK VALVERDE MD 02/17/24 Prednisone (Prednisone) 10 Mg Tab.ds.pk, 40 MG PO DAILY for 5 Days, #5 TAB Prov:BROCK VALVERDE MD 02/17/24 Methylprednisolone (Medrol) 4 Mg Tab.ds.pk, 4 MG PO AD, #1 UNIT Prov:TAM ORDRÍGUEZ [employer] [facility] 04/01/23 Ibuprofen (Ibuprofen 800 mg Tab) 800 Mg Tab, 800 MG PO Q8H PRN for fever or pain, #30 TAB 0 Refills Prov:TAM RODRÍGUEZ [employer] [facility] 04/01/23 Cyclobenzaprine HCl (Cyclobenzaprine HCl) 10 Mg Tablet, 10 MG PO TID for 5 Days, #30 TAB Prov:TAM RODRÍGUEZ [employer] 04/01/23 Ibuprofen (Ibuprofen) 600 Mg Tablet, 600 MG PO Q6H PRN for PAIN, #20 TAB Prov:KARLY ROSALES V [facility] 02/28/22 Past Medical History Past Medical History: No Pertinent History Additional Past Medical Hx: PTSD Surgical History: Cholecystectomy, Other Surgical History Other: PARTIAL HYSTERECTOMY History: Not Applicable RN Note Reviewed/Agreed w/PFSH: Yes Review of System Dictation REVIEW OF SYSTEMS: CONSTITUTIONAL: Patient denies fevers, chills, sweats and weight changes. Reports fatigue EYES: Patient denies any visual symptoms. EARS, NOSE, AND THROAT: No difficulties with hearing. No symptoms of rhinitis or sore throat. CARDIOVASCULAR: Patient denies chest pains, palpitations, orthopnea and paroxysmal nocturnal dyspnea. RESPIRATORY: No dyspnea on exertion, no wheezing Reports nicotine dependence; smokes greater than one pack per day. She states that she has had a persistent dry cough since Sunday. She states cough is now painful. GI: No nausea, vomiting, diarrhea, constipation, abdominal pain, hematochezia or melena. : No urinary hesitancy or dribbling. No nocturia or urinary frequency. No abnormal urethral discharge. MUSCULOSKELETAL: No myalgias or arthralgias. NEUROLOGIC: No chronic headaches, no seizures. Patient denies numbness, tingling or weakness. PSYCHIATRIC: Patient denies problems with mood disturbance. No problems with anxiety. ENDOCRINE: No excessive urination or excessive thirst. States she is concerned that she may have elevated blood glucose. She states she was told in the past that she had high blood sugar but never had it rechecked. DERMATOLOGIC: Patient denies any rashes or skin changes. Initial Vital Sign VS Vital Signs Date Time Temp Pulse Resp B/P (MAP) Pulse Ox O2 Delivery O2 Flow Rate FiO2 02/20/25 18:37 98.4 80 18 145/83 99 Room Air 0 Physical Exam Dictation Vital signs: Reviewed. Afebrile Constitutional: No acute distress. Non-toxic appearing. Pleasant Head/Face: Normocephalic, atraumatic. Eyes: Periorbital areas with no swelling, redness, or edema. Lids and lashes are normal. Conjunctival injection is absent. Sclera anicteric. Pupils equal, round, reactive to light. ENT: Pinnas intact and no signs of trauma or erythema. Ear canals clear and no discharge. TMs no erythema. No nasal discharge or bleeding noted. Oropharynx with no exudate, redness, swelling, masses, exudates, or evidence of obstruction. Uvula midline. Mucous membranes moist. He has congestion appreciated. Neck: Trachea midline, no masses palpated, and no cervical lymphadenopathy. No swelling. Supple, full range of motion. Chest/Axilla: No tenderness, no crepitus, no paradoxical movement, no retractions. Cardiovascular: Regular rate, regular rhythm, no murmur, no gallops. Symmetric pulses. No peripheral edema. BP 145/83. Respiratory: Respirations even and unlabored. Lung sounds clear; no wheezes, rales or rhonchi. Dry cough noted. Room air SpO2 99% Gastrointestinal: Inspection is normal. No distention is appreciated. Bowel sounds are normal. No mass or organomegaly . There is no tenderness. No rebound. No rigidity. No voluntary or involuntary guarding. No Harry's sign. Neurological: Normal speech, gross motor function intact, gross sensory function intact. No focal weakness/Paresthesia. Musculoskeletal/Extremities: All extremities have full range of motion, no pain or tenderness on palpation. Symmetric pulses. Integumentary: Intact. Skin is normal color, warm and dry. Cap refill less than 3 seconds. Results (Laboratory/Radiology) Laboratory/Radiology Laboratory Tests Test 02/20/25 18:44 02/20/25 18:48 Influenza Type A Antigen Negative For Type A Influenza Type B Antigen Negative For Type B SARS-CoV-2, RNA, NAAT NEGATIVE SARS CoV-2 Group A Streptococcus Rapid negative (NEGATIVE) Whole Blood Glucose 277 MG/DL (70-110) H Labs Reviewed?: Yes ED Course ED Course Orders Procedure Category Date Status Time Covid Rna Naat LAB 02/20/25 Complete 18:41 Influenza Type A & B, LAB 02/20/25 Complete Rapid 18:41 Rapid (Group A Strep) LAB 02/20/25 Complete 18:41 Random Accucheck At [facility] 02/20/25 Transmitted Bedside 18:44 Guaifenesin Sug-Jules PHA 02/20/25 Complete 100 Mg/5ml (Robituss 19:00 Guaifenesin-Codeine PHA 02/20/25 In Process Syrup 5ml (Robitussi 19:30 Azithromycin PHA 02/20/25 Complete (Zithromax) 21:00 Current Medications Medications (Trade) Dose Ordered Sig/Aurelia Route PRN Reason Start Time Stop Time Status Last Admin Dose Admin Azithromycin (Zithromax) 500 mg ONCE ONCE PO 02/20/25 21:00 02/20/25 21:01 DC Guaifenesin (RobiTUSSin SUGAR-FREE 100 MG/ 5 ML UDCUP) 200 mg ONCE PO 02/20/25 19:00 02/20/25 19:28 DC Guaifenesin/ Codeine Phosphate (RobiTUSSin AC 5 ML SYRUP) 10 ml ONCE PO 02/20/25 19:30 02/20/25 23:30 Vital Signs Date Time Temp Pulse Resp B/P (MAP) Pulse Ox O2 Delivery O2 Flow Rate FiO2 02/20/25 18:37 98.4 80 18 145/83 99 Room Air 0 Patient presented with nasal congestion, painful nonproductive cough shortness breath and fever earlier in the illness. Cough is persistent and painful on evaluation patient was afebrile, hemodynamically stable, and not hypoxic with room air SpO2 duration of 99% on room air. Lung exam is clear without focal findings. No respiratory distress. She is negative for influenza and COVID. Clinical presentation is consistent with acute bronchitis. Given smoking history and persistent symptoms, patient was treated symptomatically and prescribed azithromycin along with guaifenesin and antitussive therapy. She was advised to use Tylenol or ibuprofen for pain and fever control. At patient's request, point of care glucose was obtained and noted to be elevated at 277. Patient reports history of elevated blood glucose but no formal diagnosis of diabetes. There are no signs of hyperglycemic emergency at this time, including no altered mental status, no vomiting, no abdominal pain, or dehydration. No emergent intervention indicated in the emergency department patient remained stable for discharge with outpatient management She was to receive education about her elevated blood glucose level of 277; glucose value is abnormal and concerning for possible diabetes and requires outpatient follow up but patient left prior to discharge instructions. Patient eloped prior to doses of Guafenesin codeine and initial dose Azithromycin. Her prescriptions for Azithromycin and Guafenesin were electronically sent to her pharmacy of choice. Medical Decision Making MDM MDM: Differential diagnosis: Bronchitis, influenza, COVID, viral upper respiratory infection, COPD exacerbation Rationale: Tests considered and ordered secondary to shared decision making include: Examination Previous outside records reviewed: Old ER visits. Risk of complication and/or morbidity or mortality of patient management: None Medications-Per medication reconciliation Need for hospitalization: Patient does not meet criteria for hospitalization. Need for emergency major/minor surgery: No There are no social concerns with this patient. Prescription drug management: Azithromycin, guaifenesin Prescriptions will include symptomatic care Patient's prior external medical records from other ER visits were reviewed by me as indicated. Prior testing and results from previous visits were reviewed. Prior tests were taken into account with medical decision making and resource utilization, independent historian/historians were used to obtain complete medical history. I independently interpreted the test that were performed, results were reviewed by me and considered findings on radiology if ordered. Medical management and examination interpretation discussions were had by me with other qualified healthcare professionals as indicated for the patient's care. DX & DISP Disposition: Discharge Departure Impression: Primary Impression: Acute bronchitis Additional Impressions: Elevated random blood glucose level, Nicotine dependence Condition: Stable Scripts Guaifenesin/Dextromethorphan (Guaifenesin-Dm 200-20 mg/10 ml) 100 Mg-10 Mg/5 Ml Liquid 10 ML PO q8 hours prn for cough, #1 BOT 0 Refills Prov: REY SANTANA [facility] 02/20/25 Azithromycin (Azithromycin) 250 Mg Tablet 250 MG PO DAILY for 4 Days, #4 TAB 0 Refills Prov: REY SANTANA [facility] 02/20/25 Additional Instructions: PATIENT LEFT PRIOR TO RECEIVING VERBAL OR WRITTEN INSTRUCTIONS Your symptoms and exam are most consistent with acute bronchitis. Testing for influenza and COVID it were negative. Your oxygen level was normal. A blood sugar checked today showed a high value of 277. You will continue azithromycin daily for the next four days. May take guaifenesin every 8 hours as needed to help loosen mucus. Take Tylenol or ibuprofen for pain or fever. Drink plenty of fluids to stay hydrated. Rest as much as possible. Use a humidifier if helpful. Avoid smoking strong odors which can worsened cough. Cough may last 2-3 weeks even as infection improves. Smoking irritate your lungs, worsens cough, and slows recovery from bronchitis. It also increase your risk for chronic lung disease and infections. Quitting smoking will: Help your cough improve faster, reduce future lung infections, and improve your overall. Resources to help you quit: One 800 quit now, smoke-free dot gov, or talked to your primary care provider about medications or nicotine replacement. Your blood sugar was elevated today higher than normal this may indicate diabetes. This does not require emergency treatment today. You must follow up with your primary care provider within the next 1-2 weeks for repeat testing and management return sooner if you have excessive thirst or urination, vomiting, confusion, or worsening weakness. Resume normal activities as tolerated. Avoid strenuous activity when symptoms are present. Return to the emergency department if you have: Shortness of breath/trouble breathing, chest pain, fever greater than 101 that does not improve, worsening cough/new symptoms, inability to keep fluids down, or concerning symptoms. Your primary care provider you eun l need to see next week for bronchitis follow up, evaluation of elevated blood glucose, and for smoking cessation support. Referrals: SELF,REFERRAL (PCP) Time of Disposition: 21:36 REY SANTANA Feb 20, 2025 18:46
[2025-02-20 19:06] LABS: SARS-CoV-2, RNA, NAAT NEGATIVE SARS CoV-2 (NEGATIVE)
[2025-02-20 19:12] LABS: INFLUENZA TYPE A Negative For Type A (NEGATIVE); INFLUENZA TYPE B Negative For Type B (NEGATIVE)
[2025-02-20 19:41] LABS: RAPID GROUP A STREP negative (NEGATIVE)
[2025-02-20] MEDS ORDERED: AZITHROMYCIN 250 MG TABLET PO ONE (21:00)
--- NOTE | 2025-02-20 21:02 | NUR ---
PT CALLED NO ANSWER
--- NOTE | 2025-02-20 21:15 | NUR ---
PT CALLED NO ANSWER
--- NOTE | 2025-02-20 21:31 | NUR ---
PT CALLED NO ANSWER
--- NOTE | 2025-02-20 21:32 | NUR ---
ERP PROGRAMMER CALLED PT, NO ANSWER
== END 2025-02-20 21:46 | disposition left against medical advice (07) ==
LOC: EDH 18:37
DX: J20.9 Acute bronchitis, unspecified (principal); F17.200 Nicotine dependence, unspecified, uncomplicated; Z20.822 Contact with and (suspected) exposure to COVID-19; Z79.52 Long term (current) use of systemic steroids; Z79.84 Long term (current) use of oral hypoglycemic drugs; Z90.49 Acquired absence of other specified parts of digestive tract; Z90.711 Acquired absence of uterus with remaining cervical stump
CPT/HCPCS: 82948; 87635; 87804; 87880; 99283